=== PATIENT | female | born 1990 | race Caucasian/White ===

== ENCOUNTER 2019-02-27 11:29 | Emergency (ER) | payer MEDICAID ==
--- NOTE | 2019-02-27 11:40 | EDM.PDOC ---
ED HPI GENERAL MEDICAL PROBLEM - General Chief Complaint: ENT Problem Stated Complaint: SWOLLEN FACE Time Seen by Provider: 02/27/19 11:35 Source of Information: Reports: Patient History Limitations: Reports: No Limitations - History of Present Illness INITIAL COMMENTS - FREE TEXT/NARRATIVE: HISTORY AND PHYSICAL: History of present illness: Patient is a 28-year-old female presents to the ED with complaint of swelling of right side of face. She states she noticed it this morning. She states she did break a tooth recently and has not been able to see a dentist for it. She denies fevers or chills and has no other complaints at this time. Review of systems: As per history of present illness and below otherwise all systems reviewed and negative. Past medical history: As per history of present illness and as reviewed below otherwise noncontributory. Surgical history: As per history of present illness and as reviewed below otherwise noncontributory. Social history: No reported history of drug or alcohol abuse. Family history: As per history of present illness and as reviewed below otherwise noncontributory. Physical exam: General: Patient sitting comfortably in no acute distress and nontoxic appearing HEENT: Tooth #29 is broken and there is adjacent gum swelling without abscess. Poor dentition and carries throughout. Atraumatic, normocephalic, pupils reactive, negative for conjunctival pallor or scleral icterus, mucous membranes moist, throat clear, neck supple, nontender, trachea midline. No meningeal signs. Lungs: Clear to auscultation, breath sounds equal bilaterally, chest nontender. Heart: S1S2, regular, negative for clicks, rubs, or overt murmur. Abdomen: Soft, nondistended, nontender. Negative for masses or hepatosplenomegaly. Negative for costovertebral tenderness. No rigidity, rebound , guarding. Pelvis: Stable nontender. Genitourinary: Deferred. Rectal: Deferred. Extremities: Atraumatic, negative for cords or calf pain. Neurovascular unremarkable. Neuro: Awake, alert, oriented. Cranial nerves II through XII unremarkable. Cerebellum unremarkable. Motor and sensory unremarkable throughout. Exam nonfocal. Notes: Diagnostics: [] Therapeutics: [] Prescriptions: Augmentin Impression: Dental infection Plan: Take antibiotic as instructed Follow up with dentist Return to ED as needed as discussed Definitive disposition and diagnosis as appropriate pending reevaluation and review of above. - Related Data Allergies Allergy/AdvReac Type Severity Reaction Status Date / Time No Known Allergies Allergy Verified 02/27/19 11:39 Home Meds: Home Meds Amoxicillin/Potassium Clav [Augmentin 875-125 Tablet] 1 each PO BID 7 Days #14 tablet 02/27/19 [Rx] Buprenorphine HCl/Naloxone HCl [Suboxone 12 mg-3 mg Sl Film] 16 mg PO BID [History] Dextroamphetamine/Amphetamine [Adderall 20 mg Tablet] 20 mg PO BID 02/27/19 [ History] ED ROS ENT - Review of Systems Review Of Systems: ROS reveals no pertinent complaints other than HPI. ED EXAM, ENT - Physical Exam Exam: See Below (see dictation) Course - Vital Signs Last Recorded V/S: Last Vital Signs Temp 97.7 F 02/27/19 11:39 Pulse 131 H 02/27/19 11:39 Resp 18 02/27/19 11:39 BP 123/80 02/27/19 11:39 Pulse Ox 99 02/27/19 11:39 Departure - Departure Time of Disposition: 11:40 Disposition: Home, Self-Care 01 Condition: Good Clinical Impression: Dental infection - Discharge Information Prescriptions: Amoxicillin/Potassium Clav [Augmentin 875-125 Tablet] 1 each PO BID 7 Days #14 tablet Referrals: PCP,Unknown [Primary Care Provider] - Forms: ED Department Discharge Additional Instructions: The following information is given to patients seen in the emergency department who are being discharged to home. This information is to outline your options for follow-up care. We provide all patients seen in our emergency department with a follow-up referral. The need for follow-up, as well as the timing and circumstances, are variable depending upon the specifics of your emergency department visit. If you don't have a primary care physician on staff, we will provide you with a referral. We always advise you to contact your personal physician following an emergency department visit to inform them of the circumstance of the visit and for follow-up with them and/or the need for any referrals to a consulting specialist. The emergency department will also refer you to a specialist when appropriate. This referral assures that you have the opportunity for follow-up care with a specialist. All of these measure are taken in an effort to provide you with optimal care, which includes your follow-up. Under all circumstances we always encourage you to contact your private physician who remains a resource for coordinating your care. When calling for follow-up care, please make the office aware that this follow-up is from your recent emergency room visit. If for any reason you are refused follow-up, please contact the [facility] Emergency Department at and asked to speak to the emergency department charge nurse. [facility] [address] [place] [address] [id number] [address] [id number] Take antibiotic as instructed Follow up with dentist Return to ED as needed as discussed
== END 2019-02-27 11:53 | disposition home or self-care (01) ==
LOC: MW.ED 11:29
DX: K04.7 Periapical abscess without sinus (principal); K02.9 Dental caries, unspecified; K03.81 Cracked tooth
CPT/HCPCS: 99282